=== PATIENT | male | born 1990 | race Caucasian/White ===

== ENCOUNTER 2020-06-22 19:51 | Emergency (ER) | payer MEDICAID, OTHER ==
[~2020-06-22] VITALS: Ht 175.3 cm; Wt 68.0 kg
[2020-06-22 19:54] VITALS: BP 138/76
--- NOTE | 2020-06-22 19:58 | NUR ---
To ED bed 04
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
--- NOTE | 2020-06-22 20:20 | NUR ---
ERMD AT BEDSIDE FOR MEDICAL EVALUATION.
[2020-06-22 21:05] VITALS: BP 138/76
--- NOTE | 2020-06-22 21:05 | NUR ---
Patient discharged with v/s stable. Written and verbal after care instructions given and explained. Patient verbalized understanding. Ambulatory with steady gait. All questions addressed prior to discharge. Advised to follow up with PMD.
== END 2020-06-22 21:05 | disposition home or self-care (01) ==
LOC: MED 19:51
DX: S01.01XA Laceration without foreign body of scalp, initial encounter (principal); F14.90 Cocaine use, unspecified, uncomplicated; F15.90 Other stimulant use, unspecified, uncomplicated; W22.8XXA Striking against or struck by other objects, initial encounter; Y93.89 Activity, other specified; Y92.89 Other specified places as the place of occurrence of the external cause; Y99.8 Other external cause status
CPT/HCPCS: 90471; 90715; 99283

== ENCOUNTER 2020-07-10 16:16 | Emergency (ER) | payer OTHER ==
[~2020-07-10] VITALS: Ht 175.3 cm; Wt 70.3 kg
[2020-07-10 16:18] VITALS: BP 132/85
--- NOTE | 2020-07-10 16:28 | NUR ---
AMB TO BED 11
--- NOTE | 2020-07-10 16:30 | NUR ---
DR. LUIS EVALUATING PT AT BEDSIDE
--- NOTE | 2020-07-10 16:41 | NUR ---
PT SEEN AND D/C BY DR. LUIS, NO NURSING CARE GIVEN
[2020-07-10 16:46] VITALS: BP 132/85
== END 2020-07-10 16:41 | disposition home or self-care (01) ==
LOC: MED 16:16
DX: I10 Essential (primary) hypertension (principal); Z48.02 Encounter for removal of sutures
CPT/HCPCS: 99281